=== PATIENT | male | born 2000 | race Caucasian/White ===

== ENCOUNTER 2022-09-21 16:02 | Emergency (ER) | payer OTHER, SELFPAY ==
[2022-09-21] MEDS ORDERED: Dexamethasone 10 MG/ML VIAL ONE (16:46)
== END 2022-09-21 17:35 | disposition home or self-care (01) ==
LOC: CSHERS 16:02
DX: J06.9 Acute upper respiratory infection, unspecified (principal); H66.91 Otitis media, unspecified, right ear
CPT/HCPCS: 71045; 96372; J1100